=== PATIENT | female | born 1990 | race Caucasian/White ===

== ENCOUNTER 2022-11-21 12:30 | Outpatient (RCR) | payer BC, MEDICARE, MEDICAID, SELFPAY ==
[2022-11-16 13:18] VITALS: BP 97/71; PULSE 57; RESP 16; TEMP 36.1; O2SAT 97
[2022-11-16] MEDS: 0.9 % SODIUM CHLORIDE 1000 ml 1,000 ML IV ×2 (13:40→14:42)
[2022-11-21 12:43] VITALS: BP 88/66; PULSE 69; RESP 16; TEMP 36.4; O2SAT 97
[2022-11-21] MEDS: 0.9 % SODIUM CHLORIDE 1000 ml 1,000 ML 1200 ML IV ×2 (12:49→13:35)
[2022-11-21 14:26] VITALS: BP 111/67; PULSE 60; RESP 16; O2SAT 100
--- NOTE | 2022-11-23 15:29 | ONC.NURNOTE ---
Pt called to cancel infusion on 11/24/22 due to feeling better, pt does want to keep appts for infusion for next week.
== END 2023-05-15 23:59 | disposition home or self-care (01) ==
LOC: CCIC 12:30
PROVIDERS: PCP Family Medicine; Referring Provider Family Medicine; Visit Provider Clinical Nurse Specialist
DX: R11.10 Vomiting, unspecified (principal); Z98.84 Bariatric surgery status
CPT/HCPCS: 96360; 96361; J7030

== ENCOUNTER 2023-04-12 11:17 | Emergency (ER) | payer BC, MEDICARE, MEDICAID, SELFPAY ==
[2023-04-12 11:33] VITALS: BP 133/88; PULSE 83; RESP 18; TEMP 35.8; O2SAT 99; BMI 30.7
--- NOTE | 2023-04-12 12:24 | ED.PSYCH ---
HPI - Psych General Chief Complaint: Psychiatric Problem/Disorder Stated Complaint: Mental health Time Seen by Provider: 04/12/23 12:09 History of Present Illness HPI Narrative: This patient comes in reporting depression symptoms and feeling like she does not want to live anymore. She had a gastric bypass done 7 months ago and has lost 200 lb. She does have a prior history of depression and is currently taking Prozac and Wellbutrin. She had these medicines changed a few weeks ago but reports no benefit are from them currently. She states that she has been drinking alcohol are more than she should and states that her last drink was last evening. She denies using any street drugs. She has not had any visual or auditory hallucinations. She states that she is sleeping poorly at night and finds that she sleeps during the day instead. She lives at home with her parents. Her parents are supportive. She states that she feels unsafe with regard to her mood and reports that she has been hospitalized twice in the past under similar circumstances. The Related Data Home Medications Medication Instructions Recorded Confirmed amlodipine 5 mg tablet 5 mg PO DAILY 11/14/22 11/14/22 bupropion HCl 150 mg 24 hr tablet, 150 mg PO DAILY 11/14/22 11/14/22 extended release fluoxetine 40 mg capsule 40 mg PO DAILY 11/14/22 11/14/22 levetiracetam 500 mg 1,000 mg PO DAILY 11/14/22 11/14/22 tablet,extended release 24 hr lisinopril 20 mg tablet 20 mg PO DAILY 11/14/22 11/14/22 omeprazole 20 mg capsule,delayed 20 mg PO DAILY 11/14/22 11/14/22 release Previous Rx's Medication Instructions Recorded ondansetron HCl 4 mg tablet 4 mg PO Q6H #20 tabs 11/14/22 Allergies Allergy/AdvReac Type Severity Reaction Status Date / Time No Known Drug Allergies Allergy Verified 11/14/22 12:15 Review of Systems Status of ROS: Reports: 10 or more systems reviewed and unremarkable except as noted in History and below Narrative: Constitutional: No fevers. 200 lb weight loss in the last 7 months due to a gastric bypass. Eyes: No discharge. No vision changes. HENT: No congestion, no sore throat, no ear pain. Cardiovascular: No chest pain, no palpitations. Respiratory: No shortness of breath, no wheezes, no cough. Gastrointestinal: No abdominal pain, no vomiting, no diarrhea. Genitourinary: No dysuria, no hematuria. Musculoskeletal: Normal range of motion. Skin: No rashes, no pruritis. Neurological: No dizziness, weakness, sensory change, speech change. Endo/Heme/Allergies: No bruising or bleeding. No polydipsia. Pysch: Depression with suicidal thoughts. She reports insomnia. All other systems reviewed and are negative. PFSH [facility] Social History Smoking Status: Never smoker Do you use any of these nicotine containing products: None Second hand tobacco smoke exposure: No How often do you have a drink containing alcohol: never AUDIT-C Alcohol total score: 0 Non-prescribed substance use: denies use service: No Exam Narrative: Exam Narrative: Constitutional: Well-developed, well-nourished, no acute distress. HEENT: Normocephalic, atraumatic. Neck: Normal range of motion. Nontender. Supple. Heart: Regular. No murmurs. Normal rate. Intact distal pulses. Lungs: Clear to auscultation. No chest discomfort. No wheezes, rhonchi, or rales. Abdomen: Normal bowel sounds. Nontender. No rebound tenderness. Genitalia: Deferred. Back: No midline tenderness. Normal range of motion. Extremities: Normal range of motion. No injury. Skin: Intact. No rash. Warm. No erythema or pallor. Neurologic: No altered sensation. No weakness. Alert and oriented. Psychiatric: Depression with suicidal thoughts. Insomnia. Nursing notes and vitals signs are reviewed. Const: Vital Signs, click to edit/add: Vital Signs - 24 hr 04/12/23 11:33 04/12/23 14:29 Temperature 96.4 F L Pulse Rate 62 Pulse Rate [Pulse Oximeter] 83 Respiratory Rate 18 18 Blood Pressure 116/77 Blood Pressure [Ri ght Forearm] 133/88 Pulse Oximetry 99 96 Oxygen Delivery Me thod Room Air Course Vital Signs Vital signs: Initial Vital Signs Temperature 96.4 F L 04/12/23 11:33 Temperature Source Temporal Artery Scan 04/12/23 11:33 Pulse Rate 83 04/12/23 11:33 Pulse Rhythm Regular 04/12/23 11:33 Respiratory Rate 18 04/12/23 11:33 Blood Pressure 133/88 04/12/23 11:33 Blood Pressure Mean 103 04/12/23 11:33 Blood Pressure Position Sitting 04/12/23 11:33 Pulse Oximetry 99 04/12/23 11:33 Oxygen Delivery Method Room Air 04/12/23 11:33 Vital Signs Temperature 96.4 F L 04/12/23 11:33 Pulse Rate 83 04/12/23 11:33 Respiratory Rate 18 04/12/23 11:33 Blood Pressure 133/88 04/12/23 11:33 Pulse Oximetry 99 04/12/23 11:33 Oxygen Delivery Method Room Air 04/12/23 11:33 Temperature 96.4 F L 04/12/23 11:33 Pulse Rate 62 04/12/23 14:29 Respiratory Rate 18 04/12/23 14:29 Blood Pressure 116/77 04/12/23 14:29 Pulse Oximetry 96 04/12/23 14:29 Oxygen Delivery Method Room Air 04/12/23 11:33 MDM - Psych MDM Narrative Medical decision making narrative: This patient comes in reporting depression symptoms and thoughts of wanting to end her life. A [facility] mental assessment is ordered and completed and arrangements are being pursued for placement in an inpatient facility. Lab results returned with reassuring findings. Her potassium is a bit low at 2.7. She did receive an oral dose of potassium 20 mEq. This patient is medically cleared for inpatient psychiatric evaluation and treatment. The search for a place for inpatient evaluation and treatment continues at the end of my shift so care is transferred to the next emergency physician. Lab Data Labs: Lab Results 04/12/23 04/12/23 04/12/23 Range/Units 12:35 13:52 16:50 WBC 5.87 (4.50-11.00) K/uL RBC 4.29 (4.00-5.20) m/uL Hgb 15.1 (12.0-16.0) gm/dL Hct 45.0 (33.0-51.0) % MCV 105 H (80-100) fL MCH 35 H (26-34) pg MCHC 34 (32-36) gm/dL RDW Coeff of Frantz 17.4 H (11.5-15.5) % Plt Count 155 (140-440) K/uL Neut % (Auto) 64.2 (42.0-72.0) % Lymph % (Auto) 26.1 (20-44) % [place] % (Auto) 7.7 (0.0-11.0) % Eos % (Auto) 1.5 (0.0-7.0) % Baso % (Auto) 0.5 (0.0-3.0) % Neut # (Auto) 3.77 (1.7-7.0) K/uL Lymph # (Auto) 1.53 (0.90-2.90) K/uL [place] # (Auto) 0.50 (0.00-0.90) K/UL Eos # (Auto) 0.09 (0.00-0.50) K/uL Baso # (Auto) 0.03 (0.00-0.30) K/uL Abs Immat Gran (auto) 0.00 (0.00-0.30) K/uL Imm/Tot Granulo (auto) 0.0 % Sodium 142 (135-149) mmol/L Potassium 2.7 L* (3.6-5.1) mmol/L Chloride 101 (96-114) mmol/L Carbon Dioxide 28 (20-32) mmol/L Anion Gap 13 (7-15) mEq/L BUN 10 (5-24) mg/dL Creatinine 0.5 (0.5-1.5) mg/dL Estimated Creat Clear 164.45 Estimated GFR 129 ml/min Glucose 68 (60-115) mg/dL Calcium 9.6 (8.4-10.6) mg/dL Vitamin B12 895 H (243-894) pg/mL TSH 1.720 (0.270-4.20) uIU/mL Urine Color Red A (Yellow) Urine Appearance Cloudy A (Clear) Urine pH 6.0 (5.0-8.5) Ur Specific [place] >= 1.030 (1.000-1.030) Urine Protein 3+ A (Negative) Urine Glucose (UA) Negative (Negative) Urine Ketones 1+ A (Negative) Urine Blood 3+ A (Negative) Urine Nitrite Negative (Negative) Urine Bilirubin 2+ A (Negative) Urine Urobilinogen 1.0 (0.2-1.0) Ur Leukocyte Esterase Negative (Negative) Urine RBC >100 A (0-2) Urine WBC 5-10 A (0-5) Ur Squamous Epith Cells Few (None-Few) Urine Bacteria Many A (None) Urine HCG, Qual Negative (Negative) Salicylates < 1.0 L (1.0-10) mg/dL Urine Opiates Screen Negative (Negative) Ur Oxycodone Screen Negative (Negative) Urine Methadone Screen Negative (Negative) Ur Propoxyphene Screen Negative (Negative) Acetaminophen < 10.0 L (10.0-30.0) ug/mL Ur Barbiturates Screen Negative (Negative) U Tricyclic Antidepress Negative (Negative) Ur Phencyclidine Scrn Negative (Negative) Ur Amphetamines Screen Negative (Negative) U Methamphetamines Scrn Negative (Negative) U Benzodiazepines Scrn Negative (Negative) Urine Cocaine Screen Negative (Negative) U Marijuana (THC) Screen POSITIVE A (Negative) Ur Drug Screen Comment See Note Ethyl Alcohol 0.04 H (0.01-0.03) % SARS-CoV-2 (PCR) Negative SARS-CoV-2 (Negative) Influenza Type A (PCR) Negative PCR FLU A (Negative) Influenza Type B (PCR) Negative PCR FLU B (Negative) RSV (PCR) Negative PCR RSV (Negative) 04/12/23 Range/Units 17:34 WBC (4.50-11.00) K/uL RBC (4.00-5.20) m/uL Hgb (12.0-16.0) gm/dL Hct (33.0-51.0) % MCV (80-100) fL MCH (26-34) pg MCHC (32-36) gm/dL RDW Coeff of Frantz (11.5-15.5) % Plt Count (140-440) K/uL Neut % (Auto) (42.0-72.0) % Lymph % (Auto) (20-44) % [place] % (Auto) (0.0-11.0) % Eos % (Auto) (0.0-7.0) % Baso % (Auto) (0.0-3.0) % Neut # (Auto) (1.7-7.0) K/uL Lymph # (Auto) (0.90-2.90) K/uL [place] # (Auto) (0.00-0.90) K/UL Eos # (Auto) (0.00-0.50) K/uL Baso # (Auto) (0.00-0.30) K/uL Abs Immat Gran (auto) (0.00-0.30) K/uL Imm/Tot Granulo (auto) % Sodium (135-149) mmol/L Potassium 3.3 L (3.6-5.1) mmol/L Chloride (96-114) mmol/L Carbon Dioxide (20-32) mmol/L Anion Gap (7-15) mEq/L BUN (5-24) mg/dL Creatinine (0.5-1.5) mg/dL Estimated Creat Clear Estimated GFR ml/min Glucose (60-115) mg/dL Calcium (8.4-10.6) mg/dL Vitamin B12 (243-894) pg/mL TSH (0.270-4.20) uIU/mL Urine Color (Yellow) Urine Appearance (Clear) Urine pH (5.0-8.5) Ur Specific [place] (1.000-1.030) Urine Protein (Negative) Urine Glucose (UA) (Negative) Urine Ketones (Negative) Urine Blood (Negative) Urine Nitrite (Negative) Urine Bilirubin (Negative) Urine Urobilinogen (0.2-1.0) Ur Leukocyte Esterase (Negative) Urine RBC (0-2) Urine WBC (0-5) Ur Squamous Epith Cells (None-Few) Urine Bacteria (None) Urine HCG, Qual (Negative) Salicylates (1.0-10) mg/dL Urine Opiates Screen (Negative) Ur Oxycodone Screen (Negative) Urine Methadone Screen (Negative) Ur Propoxyphene Screen (Negative) Acetaminophen (10.0-30.0) ug/mL Ur Barbiturates Screen (Negative) U Tricyclic Antidepress (Negative) Ur Phencyclidine Scrn (Negative) Ur Amphetamines Screen (Negative) U Methamphetamines Scrn (Negative) U Benzodiazepines Scrn (Negative) Urine Cocaine Screen (Negative) U Marijuana (THC) Screen (Negative) Ur Drug Screen Comment Ethyl Alcohol (0.01-0.03) % SARS-CoV-2 (PCR) (Negative) Influenza Type A (PCR) (Negative) Influenza Type B (PCR) (Negative) RSV (PCR) (Negative) Discharge Plan Discharge Clinical Impression: Suicidal ideation, Depression Patient Disposition: Xfer Other Prescriptions: No Action fluoxetine 40 mg capsule 40 mg PO DAILY lisinopril 20 mg tablet 20 mg PO DAILY amlodipine 5 mg tablet 5 mg PO DAILY omeprazole 20 mg capsule,delayed release(DR/EC) 20 mg PO DAILY bupropion HCl 150 mg tablet extended release 24 hr 150 mg PO DAILY levetiracetam 500 mg tablet extended release 24 hr 1,000 mg PO DAILY ondansetron HCl 4 mg tablet 4 mg PO Q6H Qty: 20 0RF Follow Up/Referrals: Merari Whitt MD [Primary Care Provider] - Stand Alone Forms: Here@ [employer] Info Instructions
[2023-04-12 12:43] LABS: Basophils Absolute Auto 0.03 K/uL (0.00-0.30); Basophils Percent Auto 0.5 % (0.0-3.0); Eosinophils Absolute Auto 0.09 K/uL (0.00-0.50); Eosinophils Percent Auto 1.5 % (0.0-7.0); Hemoglobin* 15.1 gm/dL (12.0-16.0); Lymphocytes Absolute Auto 1.53 K/uL (0.90-2.90); Lymphocytes Percent Auto 26.1 % (20-44); Mean Corpuscular HGB Conc 34 gm/dL (32-36); Mean Corpuscular Hemoglobin 35 pg (26-34); Mean Corpuscular Volume 105 fL (80-100); Monocytes Percent Auto 7.7 % (0.0-11.0); Neutrophils Absolute Auto 3.77 K/uL (1.7-7.0); Neutrophils Percent Auto 64.2 % (42.0-72.0); Platelet Count* 155 K/uL (140-440); RDW Coefficient of Variation % 17.4 % (11.5-15.5); Red Blood Count 4.29 m/uL (4.00-5.20); White Blood Count* 5.87 K/uL (4.50-11.00)
[2023-04-12 12:48] LABS: Slide Review Reflex No
[2023-04-12 12:55] LABS: Chloride* 101 mmol/L (96-114); Sodium* 142 mmol/L (135-149)
[2023-04-12 12:58] LABS: Anion Gap 13 mEq/L (7-15); Blood Urea Nitrogen* 10 mg/dL (5-24); Carbon Dioxide* 28 mmol/L (20-32); Creatinine* 0.5 mg/dL (0.5-1.5); Est. Creatinine Clearance* 164.45; Estimated Glomerular Filt Rate 129 ml/min; Ethanol* 0.04 % (0.01-0.03); Glucose* 68 mg/dL (60-115)
[2023-04-12 12:59] LABS: Calcium* 9.6 mg/dL (8.4-10.6)
[2023-04-12 13:04] LABS: Acetaminophen* < 10.0 ug/mL (10.0-30.0); Potassium* 2.7 mmol/L (3.6-5.1); Salicylate* < 1.0 mg/dL (1.0-10)
[2023-04-12 13:48] LABS: Vitamin B12* 895 pg/mL (243-894)
[2023-04-12 14:06] LABS: Appearance Urine Cloudy (Clear); Bilirubin Urine 2+ (Negative); Blood Urine 3+ (Negative); Color Urine Red (Yellow); Glucose Urine Negative (Negative); Ketones Urine 1+ (Negative); Leukocyte Esterase Urine Negative (Negative); Nitrite Urine Negative (Negative); Protein Urine 3+ (Negative); Specific Gravity Urine >= 1.030 (1.000-1.030)
[2023-04-12 14:07] LABS: Ur HCG Qualitative* Negative (Negative)
[2023-04-12 14:11] LABS: Amphetamine Screen Urine Negative (Negative); Barbiturate Screen Urine Negative (Negative); Benzodiazepines Screen Urine Negative (Negative); Cannabinoid Screen Urine POSITIVE (Negative); Cocaine Screen Urine Negative (Negative); Methadone Screen Urine Negative (Negative); Methamphetamines Screen Urine Negative (Negative); Opiate Screen Urine Negative (Negative); Oxycodone Screen Urine Negative (Negative); Phencyclidine Screen Urine Negative (Negative); Tricyclic Antidepressant Urine Negative (Negative)
[2023-04-12 14:25] LABS: Bacteria Urine Many; RBC Urine >100 (0-2); Squamous Epithelial Cell Urine Few (None-Few)
[2023-04-12 14:29] VITALS: BP 116/77; PULSE 62; RESP 18; O2SAT 96
[2023-04-12] MEDS: POTASSIUM CHLORIDE 10 MEQ CAPSULE ER 20 MEQ PO (16:12)
[2023-04-12 17:33] LABS: PCR FLU A Negative PCR FLU A (Negative); PCR FLU B Negative PCR FLU B (Negative); PCR RSV Negative PCR RSV (Negative)
[2023-04-12 17:34] LABS: SARS PCR* Negative SARS-CoV-2 (Negative)
[2023-04-12 17:54] LABS: Potassium* 3.3 mmol/L (3.6-5.1)
[2023-04-12 20:12] VITALS: BP 135/88; PULSE 61; RESP 16; O2SAT 97
--- NOTE | 2023-04-12 20:16 | ED.NURSE ---
called dispatch for transfer to [facility], will get transport tonight.
== END 2023-04-12 22:15 | disposition other institution (70) ==
PROVIDERS: Emergency Provider Emergency Medicine Emergency Medical Services; PCP Family Medicine
DX: R45.851 Suicidal ideations (principal); F32.A Depression, unspecified
CPT/HCPCS: 36415; 80048; 80143; 80179; 80306; 81001; 81025; 82077; 82607; 84132; 84443; 85025; 87086; 87631; 99284; A9270